=== PATIENT | female | born 1945 | race Caucasian/White ===

== ENCOUNTER → 2023-07-21 11:06 | Outpatient (CLI) | payer MEDICARE, SELFPAY ==
--- NOTE | 2023-07-21 | DI.MRI.S_ITS ---
PROCEDURE: MR LUMBAR SPINE WO CON INDICATIONS: Radiculopathy, lumbar region TECHNIQUE: Noncontrast sagittal T1 spin echo and T2 fast echo, sagittal STIR, and T2 fast spin echo through the lumbar spine. In cases with scoliosis, additional coronal T2 fast spin echo may be performed. COMPARISON: None. FINDINGS: Image quality: Excellent. Alignment and Curvature: Minimal retrolisthesis of L5 on S1. Transitional vertebral body anatomy with lumbarization of the S1 vertebral body. Bone Marrow: Marrow is of normal overall signal. No acute vertebral body compression fractures. Spinal Cord: Conus medullaris terminates at the S2 level. Visualized cord demonstrates normal signal and size. Paraspinous Soft Tissues: No paravertebral masses. T12-L1: No central canal or neural foraminal stenosis. L1-L2: Disc desiccation and small posterior disc bulge. Mild facet arthropathy. Mild central canal stenosis. No neural foraminal stenosis. L2-L3: Disc desiccation. Mild facet arthropathy. No central canal or neural foraminal stenosis. L3-L4: Disc desiccation and height loss. Facet arthropathy and thickening of the ligamentum flavum. Epidural lipomatosis. Mild central canal stenosis. No neural foraminal stenosis. L4-L5: Disc desiccation. Facet arthropathy. Epidural lipomatosis. Mild central canal stenosis. No neural foraminal stenosis. L5-S1: Severe disc desiccation and height loss. Small posterior disc bulge. Facet arthropathy and thickening of the ligamentum flavum. Mild central canal stenosis. No neural foraminal stenosis. IMPRESSION: 1. 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 Mild multilevel central canal stenosis. 2. No significant neural foraminal stenosis. 3. Transitional vertebral body anatomy with lumbarization of the S1 vertebral body, recommend correlation with plain film prior to any intervention. Dictated by: Olegario Euceda M.D. on 07/21/2023 at 13:00 Approved by: Olegario Euceda M.D. on 07/21/2023 at 13:04
== END ==
PROVIDERS: PCP Internal Medicine; Referring Provider Physical Medicine & Rehabilitation; Visit Provider Physical Medicine & Rehabilitation
DX: M54.16 Radiculopathy, lumbar region (principal); M48.061 Spinal stenosis, lumbar region without neurogenic claudication
CPT/HCPCS: 72148